=== PATIENT | female | born 1965 | race Two or more races ===

== ENCOUNTER 2017-03-26 16:30 | Emergency (ER) | payer OTHER ==
[~2017-03-26] VITALS: Ht 165.1 cm; Wt 79.4 kg
[2017-03-26 17:22] VITALS: BP 129/75
[2017-03-26] MEDS ORDERED: ROBAXIN-750750 MG PO (18:12)
[2017-03-26] MEDS ORDERED: IBUPROFEN600 MG ORAL (18:12)
[2017-03-26 18:16] VITALS: BP 129/75
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
--- NOTE | 2017-03-27 10:19 | Diagnostic Imaging Report ---
Indication: Neck pain. Technique: Continuous helical imaging of the cervical spine was obtained transaxially from the skull base to the upper thoracic spine. 2-D coronal and sagittal reformatted images were obtained. Total Dose length Product (DLP): [address] Dose Index Volume (CTDIvol): 20 mGy Comparison: None Findings: There is no acute fracture or malalignment identified. There is no soft tissue swelling identified. Moderate uncovertebral arthritis is demonstrated at multiple levels. Some of the intervertebral discs show narrowing and osteophytes. Impression: No acute injury Moderate spondylosis [facility] has communicated the preliminary results to the Emergency Department. Their findings are largely concordant with this report. The CT scanner at [facility] is accredited by the [employer] and the scans are performed using dose optimization techniques as appropriate to a performed exam including Automatic Exposure control.
== END 2017-03-26 18:25 | disposition home or self-care (01) ==
LOC: EMR 18:20
DX: V49.9XXA Car occupant (driver) (passenger) injured in unspecified traffic accident, initial encounter (principal); Y93.9 Activity, unspecified; Y92.410 Unspecified street and highway as the place of occurrence of the external cause
CPT/HCPCS: 72125; 99284